=== PATIENT | female | born 2000 | race Two or more races ===

== ENCOUNTER 2022-08-06 16:15 | Emergency (ER) | payer MEDICAID ==
[~2022-08-06] VITALS: Ht 177.8 cm; Wt 79.0 kg
[2022-08-06 16:21] VITALS: BP 114/67
== END 2022-08-06 22:01 | disposition left against medical advice (07) ==
LOC: ER 16:15
DX: Z53.21 Procedure and treatment not carried out due to patient leaving prior to being seen by health care provider (principal); Z32.00 Encounter for pregnancy test, result unknown
CPT/HCPCS: 99281